=== PATIENT | male | born 1960 | race Caucasian/White ===

== ENCOUNTER 2018-12-11 09:13 | Day surgery (SDC) | payer MEDICAID, OTHER ==
[2018-12-11] MEDS ORDERED: BUPIVACAINE 0.5% 30 ML SDV ONE (09:20)
[2018-12-11] MEDS ORDERED: LIDOCAINE 1% 300 MG/30 ML SDV ONE (09:20)
[2018-12-11] MEDS ORDERED: LR 1,000 ML IV ONE (09:56)
[2018-12-11] MEDS ORDERED: ceFAZolin 2 GM/DEXTROSE 100 ML IV ONE (10:15)
--- NOTE | 2018-12-11 10:19 | PDHPUP ---
History & Physical Update H&P update statement: This history and physical update is based on an assessment of the patient which was completed after admission or registration (within 24 hours), but prior to the surgery/procedure. H&P update: H&P reviewed & patient examined, no change in patient's condition since H&P completed
[2018-12-11] MEDS ORDERED: MIDAZOLAM 2 MG/2 ML VIAL IVP ONE (10:32)
--- NOTE | 2018-12-11 10:32 | PDANEPAE ---
ANE History of Present Illness inguinal hernia here for laparoscopic repair ANE Past Medical History - Cardiovascular History Hx Hypertension: No Hx Arrhythmias: No Hx Chest Pain: No Hx Coronary Artery / Peripheral Vascular Disease: No Hx CHF / Valvular Disease: No Hx Palpitations: No - Pulmonary History Hx COPD: No Hx Asthma/Reactive Airway Disease: No Hx Recent Upper Respiratory Infection: No Hx Oxygen in Use at Home: No Hx Sleep Apnea: No Sleep Apnea Screening Result - Last Documented: Negative - Neurologic History Hx Cerebrovascular Accident: No Hx Seizures: No Hx Dementia: No - Endocrine History Hx Diabetes: No - Renal History Hx Renal Disorders: No - Liver History Hx Hepatic Disorders: No - Neurological & Psychiatric Hx Hx Neurological and Psychiatric Disorders: No - Cancer History Hx Cancer: No - Congenital Disorder History Hx Congenital Disorders: No - GI History Hx Gastrointestinal Disorders: Yes - Other Health History Other Health History: wears reading glasses - Chronic Pain History Chronic Pain: No - Surgical History Prior Surgeries: Right ORIF with Aparicio 02/13/09 ANE Review of Systems Review of Systems: - Exercise capacity METS (RN): 4 METS ANE Patient History - Allergies Allergies/Adverse Reactions: No Known Allergies Allergy (Verified 12/01/18 11:32) - Home Medications Home Medications: No Medications [NO HOME MEDICATIONS] 01/17/12 [Last Taken Unknown] - NPO status NPO Status: no food or drink >8 hours NPO Since - Liquids (Date): 12/10/18 NPO Since - Liquids (Time): 22:20 NPO Since - Solids (Date): 12/10/18 NPO Since - Solids (Time): 20:00 - Anes Hx Anes Hx: no prior problems - Smoking Hx Smoking Status: Never smoked - Alcohol Use Alcohol Use: Occasionally - Family Anes Hx Family Anes Hx: none Family Hx Anesthesia Complications: none ANE Labs/Vital Signs - Vital Signs Blood Pressure: 111/84 Heart Rate: 69 Respiratory Rate: 18 O2 Sat (%): 96 Height: 185.42 cm Weight: 70.307 kg ANE Physical Exam - Airway Neck exam: FROM Mallampati Score: Class 2 Mouth exam: normal dental/mouth exam - Pulmonary Pulmonary: no respiratory distress, clear to auscultation - Cardiovascular Cardiovascular: regular rate and rhythym, no murmur, rub, or gallop - ASA Status ASA Status: I ANE Anesthesia Plan Anesthesia Plan: general endotracheal anesthesia
[2018-12-11] MEDS ORDERED: ROCURONIUM 50 MG/5 ML VIAL ONE (10:38)
[2018-12-11] MEDS ORDERED: LIDOCAINE 2% 100 MG/5 ML SYR ONE (10:38)
[2018-12-11] MEDS ORDERED: fentaNYL 100 MCG/2 ML INJ ONE (10:38)
[2018-12-11] MEDS ORDERED: PROPOFOL 200 MG/20 ML VIAL ONE (10:38)
[2018-12-11] MEDS ORDERED: ACETAMINOPHEN 500 MG TAB PO PRN (11:21)
[2018-12-11] MEDS ORDERED: fentaNYL 100 MCG/2 ML INJ IVP PRN (11:21)
[2018-12-11] MEDS ORDERED: DEXAMETHASONE 4 MG/ML VIAL IVP PRN (11:21)
[2018-12-11] MEDS ORDERED: HYDROmorphONE/DILAUDID 2 MG/ML INJ IVP PRN (11:21)
[2018-12-11] MEDS ORDERED: HYDROCODONE/APAP 5/325 TAB PO PRN (11:21)
[2018-12-11] MEDS ORDERED: NALOXONE HCL 0.4 MG/ML INJ IVP PRN (11:21)
[2018-12-11] MEDS ORDERED: oxyCODONE IR 5 MG TAB PO PRN (11:21)
[2018-12-11] MEDS ORDERED: ONDANSETRON 4 MG/2 ML VIAL IVP PRN (11:21)
--- NOTE | 2018-12-11 11:54 | POSTANESTH ---
Post Anesthetic Evaluation Cardiovascular Status: Normal, Stable, Similar to Pre-Op Cond Respiratory Status: Normal, Stable, Similar to Pre-op Cond., Requires Airway Assist Level of Consciousness/Mental Status: Moderately Sleepy Pain Control: Adequate, Prn Tx Ordered Nausea/Vomiting Control: Adequate, Prn Tx Ordered Complications Possibly Related to Anesthesia: None Noted
--- NOTE | 2018-12-11 12:24 | POSTOPPROG ---
Post Op Note Date of Operation: 12/11/18 Surgeon: Alber Weber Facsimile Machine Operator: none Anesthesiologist: Noemy Pre-op Diagnosis: LIH Post-op Diagnosis: BIH Procedure: B/L lap TEP repir wiht 3-D mx mesh Findings: left direct, right indirect Inf/Abcess present in the surg proc area at time of surgery?: No EBL: Minimal
[2018-12-11] MEDS ORDERED: HYDROCODONE/APAP 5/325 TAB ONE (12:32)
--- NOTE | 2018-12-11 12:34 | GOP ---
[f rep st] OPERATIVE REPORT DATE OF OPERATION: SURGEON: Alber Weber MD ANESTHESIA: General endotracheal anesthesia. ANESTHESIOLOGIST: Dr. Kevon Salguero. PREOPERATIVE DIAGNOSIS: Unilateral inguinal hernia, left. POSTOPERATIVE DIAGNOSIS: Bilateral inguinal hernia. PROCEDURE PERFORMED: Bilateral laparoscopic inguinal hernia repair with 3DMax mesh. FINDINGS: SPECIMENS: No specimens. ESTIMATED BLOOD LOSS: 10 mL. INDICATIONS: This is a 58-year-old gentleman presents with a symptomatic left inguinal hernia for la paroscopic repair. He has had problems over the last several months, getting worse. His job is a [employer]. All risks, benefits, and alternatives were outlined with the patient prior to presenting for surgery. DESCRIPTION OF PROCEDURE: Patient was brought to the operating room. After induction of endotrachea l anesthesia in a supine position, his abdomen was prepped chlorhexidine and draped sterilely. Time- out procedure was then performed according to institutional standards. Local anesthetic was infused in skin and subcutaneous tissue as at the trocar sites, as well as field block bilaterally. Open preperitoneal trocar placement was done on the left side of the inferior rectus sheath. The rec tus sheath divided transversely and the muscle was swept laterally. Balloon dissection and then stru ctural balloon are used to create and maintain the space of 15 TOR with carbon dioxide. Working troc ars were placed in the lower midline under direct visualization. The dissection was carried out from the anterior superior iliac spine to the pubic tubercle on either. The right side has a small indir ect inguinal hernia and the left side has a small indirect and a much larger direct inguinal hernia. These spaces are completely dissected out and the 3DMax mesh was then unfurled on either side, large , to interpose the position between the peritoneum and the hernia defect. Hemostasis was assured. T he mesh was assured to be in the appropriate position prior to deflating the abdomen. Working trocars were removed. Structures balloon was removed. The fascia was closed using 0 Vicryl at the level of the umbilicus. All ports were closed at the skin level using 4-0 Monocryl. Dermabon d was applied, and the patient awakened, extubated, taken to recovery in stable condition. No immedi ate complications. COMPLICATIONS: There were no complications that were noted. /[id number]/MODL
[2018-12-11 14:45] VITALS: BP 120/84
== END 2018-12-11 14:39 | disposition home or self-care (01) ==
LOC: FSGY 09:13
PROVIDERS: ATTEND Surgery
PROC: 0YUA4JZ Supplement Bilateral Inguinal Region with Synthetic Substitute, Percutaneous Endoscopic Approach (ICD-10-PCS; principal; 2018-12-11 10:45)
DX: K40.20 Bilateral inguinal hernia, without obstruction or gangrene, not specified as recurrent (principal)
CPT/HCPCS: C1727; C1781; J2001; J2250; J2704; J3010